=== PATIENT | female | born 1960 | race Caucasian/White ===

== ENCOUNTER 2017-04-06 19:22 | Emergency (ER) | payer BC ==
[~2017-04-06] VITALS: Ht 165.1 cm; Wt 75.6 kg
[2017-04-06 19:29] VITALS: BP 126/82; PULSE 71; RESP 15; TEMP 98.2; O2SAT 98
[2017-04-06] MEDS ORDERED: [UNRECOGNIZED DRUG - CODE] PO (19:38)
--- NOTE | 2017-04-06 20:04 | PD ---
HPI Chief Complaint: Cold / Flu Symptoms Time Seen by Provider: 19:50 Travel History International Travel<30 days: No Contact w/Intl Traveler<30days: No Traveled to known affect area: No History of Present Illness HPI 56-year-old female presents to the emergency room for evaluation of occasional nonproductive cough with associated pleuritic chest pain, left-sided earache, and sore throat. Patient states she has had intermittent symptoms for the past month. She went to her primary care physician and was given a prescription for antibiotics for otitis media which she finished. She felt better for a short time and then felt worse again. Her ear feels as though it needs to pop. Her symptoms resurfaced about one week ago. She has been taking qdji-yup-ehecnik cough and cold medications as well as ibuprofen without significant relief. Patient states she came in today because she is leaving on a plane tomorrow and wanted to be checked out before leaving. She has associated pleuritic chest pain and states when she takes deep breaths it feels like her lungs are burning. She denies chest pain at rest. This has been ongoing for 2 weeks. Patient does not remember any specific history of fevers because she is still having postmenopausal hot flashes. [facility] Past Medical History Medical History: Denies Significant Hx Tetanus Vaccination: Unknown ?: Not LMP: PERIMENOPASAL Tubal Ligation: Yes Past Surgical History Tonsillectomy: Yes Other Surgery: Yes (BREAST AUGMENTATION ) Social History Alcohol Use: No Tobacco Use: No Substance Use: No Allergies-Medications (Allergen,Severity, Reaction): Coded Allergies: Codeine (Verified Adverse Reaction, Unknown, NAUSEA, 04/06/17) Reported Meds & Prescriptions Reported Meds & Active Scripts Active Reported Solodyn (Minocycline HCl) 55 Mg Tab 55 Mg PO DAILY Review of Systems Except as stated in HPI: all other systems reviewed are Neg Physical Exam Narrative GENERAL: Well-nourished, well-developed female in no acute distress. Afebrile. Ambulatory. SKIN: Focused skin assessment warm/dry. HEAD: Normocephalic. EYES: No scleral icterus. No injection or drainage. ENT: Mucosa pink and moist. No erythema or exudates. No uvular edema. No uvular , palatal, or tonsillar deviation. Airway patent. Nasal turbinates appear normal without nasal blood, purulent drainage or septal hematoma. EARS: Bilateral pinnae and external canals appear within normal limits. Bilateral tympanic membranes without erythema, dullness or perforation. NECK: Supple, trachea midline. No JVD or lymphadenopathy. CARDIOVASCULAR: Regular rate and rhythm without murmurs, gallops, or rubs. RESPIRATORY: Breath sounds equal bilaterally. No accessory muscle use. No crackles, rales, wheezes, or rhonchi appreciated. Data Data Last Documented VS Vital Signs Date Time Temp Pulse Resp B/P Pulse Ox O2 Delivery O2 Flow Rate FiO2 04/06/17 19:29 98.2 71 15 126/82 98 Orders Chest, Pa & Lat (04/06/17 ) [facility] Medical Decision Making Medical Screen Exam Complete: Yes Emergency Medical Condition: Yes Medical Record Reviewed: Yes Differential Diagnosis Upper respiratory infection versus pneumonia versus bronchitis Narrative Course 56-year-old female presents to the emergency room for evaluation of slight nonproductive cough, pleuritic chest pain, earache, and sore throat intermittently for the past month. Her chest pain only occurs with deep inspiration and has developed since onset of symptoms. She states it doesn't really feel like chest pain, more like lung pain. Lung sounds are clear and equal bilaterally. No increased work of breathing. Pulse ox 98% on room air. Chest x-ray is negative for acute findings. Physical exam reveals mild erythema of the pharynx with no exudates or edema. Oral tympanic membranes are without evidence of infection. Patient is concerned about her left ear pain. Likely has eustachian tube dysfunction. She was told to take [id number]-[id number] antihistamines and intranasal medications for her symptoms. Told to follow up with her primary care physician or return to the emergency room for worsening symptoms. She understands and agrees to plan. Diagnosis Primary Impression: Upper respiratory infection Qualified Code: J06.9 - Viral upper respiratory tract infection Additional Impression: Pleuritic chest pain Referrals: Primary Care Physician Patient Instructions: General Instructions, Pleurisy (ED), Upper Respiratory Infection (ED) Additional Instructions: Rest and drink plenty of fluids. Continue [id number] medications as directed, as needed for symptoms. Take ibuprofen with food as directed, as needed for pain. Follow-up with a primary care physician. Return to the emergency room for worsening symptoms. Disposition: 01 DISCHARGE HOME Condition: Stable Meghna Uribe April 06, 2017 20:04
--- NOTE | 2017-04-06 20:29 | RADHPO ---
EXAM DATE/TIME: 04/06/2017 20:09 [facility] COMPARISON: No previous studies available for comparison. INDICATIONS : Patient states she has had an upper respiratory infection going on eight weeks. Her chest and lungs h er when she takes a deep breath. MEDICAL HISTORY : None. SURGICAL HISTORY : None. ENCOUNTER: Initial ACUITY: 2 months PAIN SCORE: 0/10 LOCATION: Bilateral chest FINDINGS: PA and lateral views of the chest demonstrate the lungs to be symmetrically aerated without evidence of mass, infiltrate or effusion. The cardiomediastinal contours are unremarkable. Osseous structure s are intact. CONCLUSION: No acute disease. Samy Sparks MD on April 06, 2017 at 20:27 Board Certified Radiologist. This report was verified electronically.
== END 2017-04-06 20:58 | disposition home or self-care (01) ==
LOC: PHEFT 19:22
DX: J06.9 Acute upper respiratory infection, unspecified (principal); R07.89 Other chest pain
CPT/HCPCS: 71020; 99284